=== PATIENT | male | born 1990 ===

== ENCOUNTER 2020-01-13 09:22 | Emergency (ER) | payer OTHER ==
[~2020-01-13] VITALS: Ht 175.3 cm; Wt 80.0 kg
[2020-01-13 09:23] VITALS: BP 118/82
[2020-01-13] MEDS ORDERED: ONDANSETRON ODT 4 MG ONE (09:46)
[2020-01-13] MEDS ORDERED: CYCLOBENZAPRINE 10 MG TABLET ONE (09:46)
[2020-01-13] MEDS ORDERED: HYDROcodone/APAP 5/325 TABLET ONE (09:47)
[2020-01-13] MEDS ORDERED: KETOROLAC 30 MG/1 ML ONE (09:47)
--- NOTE | 2020-01-13 09:55 | NUR ---
PT PRESENTS TO ED WITH C/O MIDLINE LOWER BACK PAIN RADIATING TO LEFT LOWER BACK X 3 DAYS, ONSET OCCURRED WHILE BENDING DOWN TO CARE FOR TODDLER AT HOME. PT DENIES ANY OTHER TRAUMA. PT MEDICATED PER EMAR, TOLERATED WELL. PT TO IMAGING AT THIS TIME.
[2020-01-13] MEDS ORDERED: ONDANSETRON ODT 4 MG PO ONE (10:00)
[2020-01-13] MEDS ORDERED: CYCLOBENZAPRINE 10 MG TABLET PO ONE (10:00)
[2020-01-13] MEDS ORDERED: HYDROcodone/APAP 5/325 TABLET PO ONE (10:00)
[2020-01-13] MEDS ORDERED: KETOROLAC 30 MG/1 ML IM ONE (10:00)
== END 2020-01-13 10:50 | disposition home or self-care (01) ==
LOC: ED 10:45
DX: S39.012A Strain of muscle, fascia and tendon of lower back, initial encounter (principal); X58.XXXA Exposure to other specified factors, initial encounter; Y93.89 Activity, other specified; Y92.89 Other specified places as the place of occurrence of the external cause; Y99.8 Other external cause status
CPT/HCPCS: 72110; 96372; 99284; J1885; Q0162